=== PATIENT | female | born 1940 | race Caucasian/White ===

== ENCOUNTER 2018-01-17 09:39 | Day surgery (SDC) | payer OTHER, SELFPAY ==
--- NOTE | 2018-01-15 09:16 | PM.PREOP ---
Pre-operative Note Interval Note Pre-op Check: Yes History & Physical Reviewed by Physician Changes: No
--- NOTE | 2018-01-15 09:17 | PM.OP.1 ---
Operative Date/Time/Diagnoses Date of procedure: 01/17/18 Time of procedure: 11:00 Procedure & Clinicians Procedure: Date of service: January 17, 2018 Preoperative diagnoses: 1. Nuclear and cortical Cataract 2. Refractive surgery right eye. Postoperative diagnoses: 1. Cataract removed with phaco emulsification and placement of a posterior chamber intraocular lens. Procedure: Phacoemulsification with posterior chamber intraocular lens implant Surgeon: Kate Kebede MD Complications: None Specimen: None Implant:ZCBOO+20.0 Blood loss: None Anesthesia: Retrobulbar with monitored standby Anesthesiologist: Ginger Torres M.D. Description of procedure: Patient is a 77 year old female with decreased vision due to cataract which is affecting activities of daily living. She wants surgery to improve vision. She was taken to the operating room and given IV sedation. A retrobulbar block consisting of 6 cc of 2% xylocaine without epinephrine mixed half and half with 0.5% Marcaine with 1 cc of hyaluronidase added is placed between the medial and lateral 1/3 of the inferior orbital rim. Lid akinesia is obtain with 1% xylocaine with epinephrine infiltrated along the lid margin. The eye is manually massaged for 30 sec, prepped using Betadine solution, and draped in the usual sterile fashion. Temporal approach was made, a 1 mm side-port incision was made at the 12 oclock meridian. Phenylephrine 1.5% mixed with 1% xylocaine 0.2 cc was placed into the anterior chamber. Viscoat followed by Vicenta was then placed. A 2.6 mm clear incision with a 2.6 mm blade was placed at the 3 oclock meridian. A 360 degree capsulorrhexis style capsulotomy was then performed with a cystitome needle on a Healon. Hydrodelineation and hydrodissection were performed. The phacoemulsification unit is introduced, and sculpting notice used to groove the central lens. It is then removed in chopping mode. The iris and capsule are slightly floppy. Epi nucleus is removed with epinuclear mode and irrigation aspiration was used to remove the peripheral cortex. The posterior capsule is polished. The intraocular lens is selected, inspected, power confirmed, and placed in the posterior chamber. The pupil [] constricted. The wound was stromally hydrated and tested for leaks, there was none and was left sutureless. Vigamox 0.1 cc was placed into the anterior chamber. Kenalog 0.2 cc was placed in the superior subconjunctival space. A drop of antibiotic and was placed and the eye was patched and shielded. The patient was stable and returned to the recovery room in excellent condition. Dictated by: Kate Kebede MD Copy to: [facility]
[2018-01-17 10:10] VITALS: BP 147/87; PULSE 58; RESP 16; TEMP 36.6; O2SAT 97; BMI 33.6
[2018-01-17] MEDS: PROPARACAINE 0.5% OPHTH SOL 2 DROPS EYE-OP (10:11)
[2018-01-17] MEDS: CATARACT EYE COMPOUND (10 DROPS/SYRINGE) 3 DROPS EYE-OP ×3 (10:22→10:32)
[2018-01-17] MEDS: BALANCED SALT IRRIG SOLN NO.2 15 ML IRRIG.SOLN IRR (11:26)
[2018-01-17] MEDS: CARBACHOL 1.5 ML VIAL INJ (11:27)
[2018-01-17] MEDS: CHONDROIDTIN/SOD HYALURONATE 1.05 ML SYRINGE INTRAOCULA (11:27)
[2018-01-17] MEDS: HYALURONATE SODIUM 10 MG/ML SYRINGE INJ (11:28)
[2018-01-17] MEDS: MOXIFLOXACIN OPHTH DROPS 3 ML BOTTLE 2 DROPS INJ (11:28)
[2018-01-17] MEDS: LIDOCAINE 1% W/EPI INJ 20 ML INJ (11:28)
[2018-01-17] MEDS: OFLOXACIN 0.3% OPHTH 5 ML 2 DROPS EYE-LEFT (11:29)
[2018-01-17] MEDS: NEOMYCIN/POLY/DEX OPHTH OINT 1 APPLIC EYE-LEFT (11:29)
[2018-01-17] MEDS: TRIAMCINOLONE 50 MG/5 ML VIAL INJ (11:30)
[2018-01-17] MEDS: BALANCED SALT IRRIG SOLN NO.2 500 ML, EPINEPHrine 1 MG IRR (11:31)
[2018-01-17] MEDS: LIDOCAINE 2% 4 ML, BUPIVACAINE 0.5% (PF) 4 ML, HYALURONIDASE 150 UNIT INJ (11:32)
[2018-01-17 11:55] VITALS: BP 148/80; PULSE 55; RESP 16; TEMP 36.6; O2SAT 100
== END 2018-01-17 12:05 | disposition home or self-care (01) ==
LOC: OR 09:40
PROVIDERS: PCP Family Medicine; Visit Provider Ophthalmology
DX: H25.12 Age-related nuclear cataract, left eye (principal)
CPT/HCPCS: J0171; J2250; J2704; J3010; J3301; J3470

== ENCOUNTER 2018-01-24 08:06 | Day surgery (SDC) | payer OTHER, SELFPAY ==
--- NOTE | 2018-01-23 07:45 | PM.PREOP ---
Pre-operative Note Interval Note Pre-op Check: Yes History & Physical Reviewed by Physician Changes: No
--- NOTE | 2018-01-24 07:43 | P.OP_ITS ---
Operative Date/Time/Diagnoses Date of procedure: 01/24/18 Time of procedure: 08:45 Procedure & Clinicians Procedure: Date of service: January 24, 2018 Preoperative diagnoses: 1. Right nuclear sclerotic and cortical cataract. 2. Previous radial keratotomy. Postoperative diagnoses: 1. Cataract removed with phacoemulsification and placement of posterior chamber intraocular lens implant. Procedure: Phacoemulsification with posterior chamber intraocular lens implant Surgeon: Kate Kebede MD Complications:None Specimen: None Implant:ZCBOO+23.5 Blood loss: None Anesthesia: Retrobulbar with monitored standby Anesthesiologist: Micah Chase M.D. Description of procedure: Patient is a female 77 year old with decreased vision due to cataract which is affecting activities of daily living. She wants surgery to improve vision. Her case is complex complicated by the fact she has had previous radial keratotomy and this can make the eye and stable for cataract surgery. It can also cause variability in postoperative vision and intra-ocular lens implant choice. She also understands there is a risk of corneal rupture with need for suturing if it becomes present. She was taken to the operating room and given IV sedation. A retrobulbar block consisting of 6 cc of 2% xylocaine without epinephrine mixed half and half with 0.5% Marcaine with 1 cc of hyaluronidase added is placed between the medial and lateral 1/3 of the inferior orbital rim. Lid akinesia is obtain with 1% xylocaine with epinephrine infiltrated along the lid margin. The eye is manually massaged for 30 sec, prepped using Betadine solution, and draped in the usual sterile fashion. Temporal approach was made, a 1 mm side-port incision was made at the 7:30 position. A 4 cut RK is present with clear central axis. She has a poorly dilating pupil. Phenylephrine 1.5% mixed with 1% xylocaine 0.2 cc was placed into the anterior chamber. Viscoat followed by Vicenta was then placed. A 2.6 mm clear incision with a 2.6 mm blade was placed at the 170 degree meridian. Care was taken to not enter under any previous corneal incision. A 360 degree capsulorrhexis style capsulotomy was then performed with a cystitome needle on a Healon. Hydrodelineation and hydrodissection were performed. The phacoemulsification unit is introduced, and sculpting notice used to groove the central lens. It is then removed in chopping mode using a low bottle height and low-flow to reduce corneal rupture risk. Epi nucleus is removed with epinuclear mode and irrigation aspiration was used to remove the peripheral cortex. The posterior capsule is polished. The intraocular lens is selected, inspected, power confirmed, and placed in the posterior chamber. The pupil was constricted. The wound was stromally hydrated and tested for leaks, there was none and it was left sutureless. A fluorescein strip was used to check the wound. No corneal sutures were leaking. A bandage contact lens was placed for extra security after intracameral antibiotics were placed. Vigamox 0.1 cc was placed into the anterior chamber. Kenalog 0.2 cc was placed in the superior subconjunctival space. A drop of antibiotic and was placed and the eye was patched and shielded. The patient was stable and returned to the recovery room in excellent condition. Dictated by: Kate Kebede MD Copy to: [facility] Same procedure as scheduled: Yes
[2018-01-24] MEDS: PROPARACAINE 0.5% OPHTH SOL 2 DROPS EYE-OP (08:20)
[2018-01-24 08:27] VITALS: BP 156/80; PULSE 61; RESP 16; TEMP 36.4; O2SAT 16; BMI 33.6
[2018-01-24] MEDS: CATARACT EYE COMPOUND (10 DROPS/SYRINGE) 3 DROPS EYE-OP (08:39)
[2018-01-24] MEDS: TRIAMCINOLONE 50 MG/5 ML VIAL INJ (09:23)
[2018-01-24] MEDS: MOXIFLOXACIN OPHTH DROPS 3 ML BOTTLE 2 DROPS INJ (09:23)
[2018-01-24] MEDS: PHENYLEPHRINE/LIDOCAINE VIAL (OR) 0.2 ML EYE-OP (09:23)
[2018-01-24] MEDS: CHONDROIDTIN/SOD HYALURONATE 1.05 ML SYRINGE INTRAOCULA (09:24)
[2018-01-24] MEDS: HYALURONATE SODIUM 10 MG/ML SYRINGE INJ (09:24)
[2018-01-24] MEDS: CARBACHOL 1.5 ML VIAL INJ (09:25)
[2018-01-24] MEDS: OFLOXACIN 0.3% OPHTH 5 ML 2 DROPS EYE-RIGHT (09:25)
[2018-01-24] MEDS: NEOMYCIN/POLY/DEX OPHTH OINT 1 APPLIC EYE-RIGHT (09:26)
[2018-01-24] MEDS: LIDOCAINE 2% 4 ML, BUPIVACAINE 0.5% (PF) 4 ML, HYALURONIDASE 150 UNIT INJ (09:27)
[2018-01-24] MEDS: BALANCED SALT IRRIG SOLN NO.2 500 ML, EPINEPHrine 1 MG IRR (09:27)
[2018-01-24] MEDS: BALANCED SALT IRRIG SOLN NO.2 15 ML IRRIG.SOLN IRR (09:29)
[2018-01-24] MEDS: LIDOCAINE 1% W/EPI INJ 20 ML INJ (09:29)
[2018-01-24 09:56] VITALS: BP 135/71; PULSE 59; RESP 16; TEMP 36.9; O2SAT 99
== END 2018-01-24 11:02 | disposition home or self-care (01) ==
PROVIDERS: PCP Family Medicine; Visit Provider Ophthalmology
DX: H25.11 Age-related nuclear cataract, right eye (principal)
CPT/HCPCS: J0171; J2250; J2704; J3010; J3301; J3470

== ENCOUNTER → 2021-01-21 08:43 | Outpatient (CLI) | payer MEDICARE, OTHER, SELFPAY ==
--- NOTE | 2021-01-21 08:46 | DI.MG.S_ITS ---
BILATERAL DIGITAL SCREENING MAMMOGRAM 3D/2D WITH CAD: 01/21/2021 CLINICAL: Routine screening. Comparison is made to exams dated: 10/25/2018 mammogram - [facility], 07/24/2015 mammogram, and 10/03/2013 mammogram - [facility]. There are scattered fibroglandular elements in both breasts. Current study was also evaluated with a Computer Aided Detection (CAD) system. There are benign calcifications in both breasts. There is a mole marker on the left breast. No significant masses, calcifications, or other findings are seen in either breast. There has been no significant interval change. IMPRESSION: BENIGN There is no mammographic evidence of malignancy. A 1 year screening mammogram is recommended. This exam was interpreted at Station ID: [id number]. NOTE: For mammograms, a report in lay terms will be sent to the patient. Approximately 15% of breast malignancies will not be visualized mammographically. In the management of a palpable breast mass, a negative mammogram must not discourage biopsy of a clinically suspicious lesion. Electronically Signed By: Jorge Alberto Crain M.D., jr/demetria:01/21/2021 09:33:07 letter sent: Normal Exam ACR BI-RADS Category 2: Benign Finding(s) 3342F
== END ==
PROVIDERS: PCP Family Medicine; Referring Provider Family Medicine; Visit Provider Family Medicine
DX: Z12.31 Encounter for screening mammogram for malignant neoplasm of breast (principal); Z78.0 Asymptomatic menopausal state; M85.852 Other specified disorders of bone density and structure, left thigh; Z82.62 Family history of osteoporosis
CPT/HCPCS: 77063; 77067; 77080

== ENCOUNTER → 2022-02-28 11:51 | Outpatient (CLI) | payer MEDICARE, OTHER, SELFPAY ==
--- NOTE | 2022-02-28 | DI.MG.S_ITS ---
BILATERAL DIGITAL SCREENING MAMMOGRAM 3D/2D WITH CAD: 02/28/2022 CLINICAL: Routine screening. Comparison is made to exams dated: 01/21/2021 mammogram - [facility], 10/25/2018 mammogram - [facility], 07/24/2015 mammogram, and 10/16/2009 mammogram - [facility]. There are scattered areas of fibroglandular density in both breasts (category b / 25%-50% glandular tissue). Current study was also evaluated with a Computer Aided Detection (CAD) system. There are benign calcifications in both breasts. No significant masses, calcifications, or other findings are seen in either breast. There has been no significant interval change. IMPRESSION: BENIGN There is no mammographic evidence of malignancy. A 1 year screening mammogram is recommended. Based on the Tyrer Cuzick model (a risk assessment model) the patient's lifetime risk is 2.6% and her 10 year risk is 0.0%. According to the ACR, ACS, and NCCN guidelines, an annual breast MRI exam along with mammogram is recommended if the patient's lifetime risk is 20% or greater. This exam was interpreted at Station ID: [id number]. NOTE: For mammograms, a report in lay terms will be sent to the patient. Approximately 15% of breast malignancies will not be visualized mammographically. In the management of a palpable breast mass, a negative mammogram must not discourage biopsy of a clinically suspicious lesion. Electronically Signed By: Alex ling/demetria:02/28/2022 13:09:41 letter sent: Normal Exam ACR BI-RADS Category 2: Benign Finding(s) 3342F
== END ==
PROVIDERS: PCP Family Medicine; Referring Provider Family Medicine; Visit Provider Family Medicine
DX: Z12.31 Encounter for screening mammogram for malignant neoplasm of breast (principal)
CPT/HCPCS: 77063; 77067

== ENCOUNTER → 2022-09-17 15:56 | Outpatient (CLI) | payer MEDICARE, OTHER, SELFPAY ==
[2022-09-17 16:39] LABS: Add Manual Diff / Slide Review NO; Basophils Absolute Auto 0 /uL (0-100); Basophils Percent Auto 0.4 % (0-2); Eosinophils Absolute Auto 200 /uL (0-450); Eosinophils Percent Auto 2.7 % (2-4); Hematocrit 39.2 % (36-46); Hemoglobin 13.5 g/dL (12.0-16.0); Lymphocytes Absolute Auto 2000 /uL (1100-4500); Lymphocytes Percent Auto 34.5 % (25-40); Mean Corpuscular HGB Conc 34.4 % (30-36); Mean Corpuscular Hemoglobin 31.3 PG (26-34); Monocytes Absolute Auto 500 /uL (0-900); Monocytes Percent Auto 8.6 % (3-14); Neutrophils Absolute Auto 3200 /uL (1500-7000); Neutrophils Percent Auto 53.8 % (50-75); Platelet Count 206 X10^3/uL (150-400); Red Blood Cell Count 4.31 X10^6/uL (4.0-5.2); Red Cell Distribution Width 13.8 % (11.6-14.8); White Blood Cell Count 5.9 X10^3/uL (4.5-11.0)
[2022-09-17 16:57] LABS: HEMOLYSIS < 15 (0-50); Iron 94 ug/dL (37-170)
[2022-09-17 16:59] LABS: Alanine Aminotransferase 29 IU/L (<35); Albumin 4.1 g/dL (3.5-5.0); Albumin Globulin Ratio 1.5 (1.0-2.8); Alkaline Phosphatase 86 U/L (38-126); Aspartate Aminotransferase 30 IU/L (14-36); Bilirubin Total 0.6 mg/dL (0.2-1.3); Blood Urea Nitrogen 16 mg/dL (7-17); Calcium 8.8 mg/dL (8.4-10.2); Carbon Dioxide 22 mmol/L (22-32); Chloride 106 mmol/L (98-107); Cholesterol 170 mg/dL (140-199); Estimated Glomerular Filt Rate > 60 mL/min (>60); Globulin 2.7 g/dL (1.7-4.1); Glucose 91 mg/dL (80-110); HDL Cholesterol 98 mg/dL (40-60); HEMOLYSIS 18 (0-50); LDL Cholesterol Calculated 46 mg/dL (<100); Potassium 3.8 mmol/L (3.4-5.1); Sodium 136 mmol/L (137-145); Total Protein 6.8 g/dL (6.3-8.2); Triglycerides 131 mg/dL (35-150)
[2022-09-17 17:07] LABS: Transferrin 234 mg/dL (206-381)
[2022-09-17 17:08] LABS: Percent Iron Saturation 30 % (15-50); Total Iron Binding Capacity 311 ug/dL (265-497)
[2022-09-17 17:16] LABS: Free T4, Direct Thyroxine 1.25 ng/dL (0.78-2.19)
[2022-09-17 17:30] LABS: TSH w/ Reflex to FT4 2.17 uIU/mL (0.47-4.68)
[2022-09-17 17:47] LABS: Vitamin B12 786 pg/mL (239-931)
== END ==
PROVIDERS: PCP Family Medicine; Referring Provider Family Medicine; Visit Provider Family Medicine
DX: M85.88 Other specified disorders of bone density and structure, other site (principal); I10 Essential (primary) hypertension; R60.0 Localized edema; G60.9 Hereditary and idiopathic neuropathy, unspecified; E78.2 Mixed hyperlipidemia
CPT/HCPCS: 80053; 80061; 82607; 83540; 83550; 84439; 84443; 85025

== ENCOUNTER 2023-04-27 09:32 | Day surgery (SDC) | payer MEDICARE, OTHER, SELFPAY ==
[2023-04-27 10:08] VITALS: BP 160/87; PULSE 74; RESP 17; TEMP 36.5; O2SAT 99
[2023-04-27] MEDS: LACTATED RINGERS 1,000 ML 42 ML IV (10:15)
--- NOTE | 2023-04-27 10:16 | P.HP_ITS ---
History of Present Illness History of Present Illness Date Patient Seen: 04/27/23 Time Patient Seen: 10:16 Chief complaint: Screening Colonoscopy Narrative: Last scope was over 10 years ago. 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 Sister No problems noted. Family/Other No problems noted. Social History household members: spouse Smoking Status: Never smoker alcohol intake: current Meds Home Medications and Allergies Home Medications Medication Instructions Recorded Confirmed Type Zinc PO BID 12/02/21 09/26/22 History calcium citrate 500 mg PO BID 12/02/21 09/26/22 History cholecalciferol (vitamin D3) 10 800 unit PO BID 12/02/21 09/26/22 History mcg (400 unit) capsule diclofenac sodium 1 % gel topical 2 g topical QID arthritis fingers 12/02/21 09/26/22 Rx kit #1 ea docusate sodium 100 mg capsule 300 mg PO DAILY 12/02/21 09/26/22 History (Stool Softener) glucosamine HCl 1,500 mg tablet 1,500 mg PO BID 12/02/21 09/26/22 History vizjkvto-dbfqvsv-eanm-lutein tablet tab PO DAILY 12/02/21 09/26/22 History omega 4-dym-ajl-fish oil 1,200 mg cap PO BID 12/02/21 09/26/22 History (144 mg-216 mg) capsule (Fish Oil) triamcinolone acetonide 0.1 % 1 applic topical DAILY PRN eczema 12/02/21 09/26/22 Rx topical ointment #80 grams topiramate 50 mg tablet 50 mg PO BID #180 tabs 02/08/23 Rx phentermine 15 mg capsule 15 mg PO DAILY #90 caps 02/28/23 04/27/23 Rx atorvastatin 80 mg tablet (Lipitor) 80 mg PO HS #90 tabs 03/21/23 Rx sodium,potassium,mag sulfates 17.5 See Rx Instructions PO .COMPLEX 04/17/23 Rx gram-3.13 gram-1.6 gram oral soln #354 mL (Suprep Bowel Prep Kit) Allergies Allergy/AdvReac Type Severity Reaction Status Date / Time benzalkonium chloride Allergy Unknown RASH Verified 04/27/23 10:06 [From MERTHIOLATE (BENZALKONIUM)] nickel [NICKEL] Allergy Unknown ALLERGY Verified 04/27/23 10:06 SCRATCH TEST REACTION 30/40 YR AGO, HAS NOT HAD PROB simvastatin AdvReac Intermediate MYALGIAS Verified 04/27/23 10:06 Review of Systems Review of Systems ROS: Yes All systems reviewed with the patient and are negative except as otherwise documented Exam Vital Signs (past 8 hours): - 04/27/23 10:08 Temperature 97.7 F Pulse Rate 74 Respiratory Rate 17 Blood Pressure 160/87 H Pulse Oximetry 99 Oxygen Delivery Method Room Air Oxygen Delivery Method Room Air Const General: cooperative and comfortable Nutritional Appearance: average body habitus Orientation: alert, awake and oriented x3 HENMT Head: normocephalic and atraumatic Eyes General: appearance normal, both eyes and all related structures Neck Neck: trachea midline Resp Effort & Inspection: normal respiratory effort and able to speak in complete sentences Cardio Rate: regular rate Rhythm: regular rhythm GI Inspection: normal to inspection Palpation: soft Skin General: atrophy Neuro General: patient alert, patient awake and patient oriented x3 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
--- NOTE | 2023-04-27 11:04 | PM.OP.COLON ---
Operative Date/Time/Diagnoses Date of procedure: 04/27/23 Time of procedure: 11:04 Pre-op diagnosis: Colon cancer screening Post-op diagnosis: same Procedure & Clinicians Study performed: Colonoscopy with anesthesia Same procedure as scheduled: Yes Indications: Colon cancer screening Surgeon: Danica Nelson Procedure Notes Procedure in detail: Preop diagnosis: Colon cancer screening Postop diagnosis: Same Operative procedure: Colonoscopy with anesthesia Surgeon: Jackie Nelson MD Findings: Poor bowel prep. Possible prolapse rectum. Small diverticuli throughout the sigmoid colon Procedure: Patient placed in lateral position. Rectal exam performed showing a possible partial prolapsed rectum easily reduced. Normal tone no masses. Scope was inserted into the rectum and advanced to the ileocecal valve with difficulty in need of abdominal pressure. Insufflation extraction of the scope including retroflex had the above findings. Impression: No large masses or polyps identified but poor bowel prep may have obscured small masses or polyps. Retroflex and physical exam give me the impression she has a partial rectal prolapse versus internal hemorrhoid prolapse that easily reduces spontaneously. Impression: Poor bowel prep however no large masses or polyps identified. Lesser size phenomenon may be obscured by the retained stool that I was unable to clear. Small diverticuli in the sigmoid colon. Possible spontaneous reducing rectal prolapse. Plan: Repeat colonoscopy in 10 years if her health is good. Sooner if clinical conditions change. Findings: diverticulitis, internal hemorrhoids and other findings (spontaneous reducing prolapsed rectum) Specimen(s): none sent Complications: none Post-procedure Recommendations: Colonoscopy in 10 years Plan for aftercare: Increase fiber and water to soften the stool to a toothpaste consistency moving forward so that her rectal prolapse does not become a problem. Follow up: as needed Disposition: PACU
[2023-04-27 11:06] VITALS: BP 118/55; PULSE 65; RESP 22; TEMP 36.9; O2SAT 96
[2023-04-27 11:11] VITALS: BP 109/51; PULSE 63; RESP 18; O2SAT 99
[2023-04-27 11:16] VITALS: BP 111/53; PULSE 55; RESP 22; O2SAT 99
== END 2023-04-27 11:49 | disposition home or self-care (01) ==
PROVIDERS: PCP Family Medicine; Referring Provider Surgery; Visit Provider Surgery
PROC: 0DJD8ZZ Inspection of Lower Intestinal Tract, Via Natural or Artificial Opening Endoscopic (ICD-10-PCS; CPT 45378; principal; 2023-04-27 09:45)
DX: Z12.31 Encounter for screening mammogram for malignant neoplasm of breast (principal); Z12.11 Encounter for screening for malignant neoplasm of colon; K57.30 Diverticulosis of large intestine without perforation or abscess without bleeding; K64.8 Other hemorrhoids; R92.323 Mammographic fibroglandular density, bilateral breasts; M85.88 Other specified disorders of bone density and structure, other site
CPT/HCPCS: G0121; 77080; J2704

== ENCOUNTER → 2023-04-27 09:37 | Outpatient (CLI) | payer MEDICARE, OTHER, SELFPAY ==
--- NOTE | 2023-04-27 12:41 | DI.RAD.S_ITS ---
Bone Density Report Name: CHERI MURILLO Age: 82 Sex: Female Ethnicity: White Date of : 1940 Indication: osteopenia; Referring Provider: GABRIELE FOSS Study: Bone densitometry was performed. Exam Date: April 27, 2023 Accession number: [id number] Bone Density: Region BMD T-score Z-score Classification AP Spine(L1-L4) 0.980 -0.6 2.1 Normal Femoral Neck (Left) 0.691 -1.4 0.9 Osteopenia Total Hip (Left) 0.779 -1.3 0.8 Osteopenia Femoral Neck (Right) 0.624 -2.0 0.3 Osteopenia Total Hip (Right) 0.753 -1.5 0.6 Osteopenia Total Hip Mean 0.766 -1.4 0.7 Osteopenia World Health Organization criteria for BMD impression classify patients as: Normal (T-score at or above -1.0), Osteopenia (T-score between -1.0 and -2.5), or Osteoporosis (T-score at or below -2.5). 10-year Fracture Risk(1): Major Osteoporotic Fracture 16% Hip Fracture 4.7% Reported Risk Factors: [place] (), Neck BMD=0.624, BMI=28.2 (1) FRAX(R) Version 3.08. Fracture probability calculated for an untreated patient. Fracture probability may be lower if the patient has received treatment. Previous Exams: -- Region Exam Age BMD T-score BMD Change BMD Change Date g/cm2 vs Baseline vs Previous -- AP Spine (L1-L4) 04/27/2023 82 0.980 -0.6 0.020 (2.1%)# -0.012 (-1.2%)# 01/21/2021 80 0.992 -0.5 0.032 (3.4%)* 0.036 (3.8%)* 07/24/2015 75 0.956 -0.8 -0.004 (-0.4%) -0.004 (-0.4%) 10/16/2009 69 0.960 -0.8 Total Hip(Left) 04/27/2023 82 0.779 -1.3 -0.048 (-5.8%)# 0.080 (11.5%)# 01/21/2021 80 0.698 -2.0 -0.129 (-15.6%)* -0.046 (-6.2%)* 07/24/2015 75 0.744 -1.6 -0.083 (-10.0%)* -0.083 (-10.0%)* 10/16/2009 69 0.827 -0.9 Total Hip(Right) 04/27/2023 82 0.753 -1.5 -0.055 (-6.8%)# 0.039 (5.4%)# 01/21/2021 80 0.714 -1.9 -0.094 (-11.6%)* -0.062 (-8.0%)* 07/24/2015 75 0.777 -1.4 -0.032 (-3.9%)* -0.032 (-3.9%)* 10/16/2009 69 0.808 -1.1 -- *Denotes significance at 95% confidence level, LSC for AP Spine = 0.022 g/cm2, LSC for Total Hip = 0.027 g/cm2 # Denotes dissimilar scan types or analysis methods Impression: The patient has low bone mass, based on the Right Femoral Neck T-score. The patient has an estimated ten-year risk of hip fracture of 4.7% and an estimated ten-year risk of major fracture of 16%, based on the WHO FRAX algorithm. No significant bone loss was observed. Discussion: BONE DENSITY IS LOW AT ONE OR MORE SKELETAL SITES. THE PATIENT'S BMD AND CLINICAL RISK FACTORS CONTRIBUTE TO THIS PATIENT'S INCREASED RISK OF FRACTURE. This patient's lowest T-score is low at one or more skeletal sites. It meets the World Health Organization's (WHO) criteria for low bone mass (T-score between -1.0 and -2.5). The patient's 10-year risk of hip fracture as calculated by FRAX exceeds the threshold where pharmacological therapy is recommended by the National Osteoporosis Foundation (NOF). However, all treatment decisions require clinical judgment and consideration of individual patient factors, including patient preferences, comorbidities, previous drug use, risk factors not captured in the FRAX model (e.g., frailty, falls, vitamin D deficiency, increased bone turnover, interval significant decline in bone density) and possible under or overestimation of fracture risk by FRAX. The patient should follow a healthful lifestyle (good nutrition with adequate calcium and vitamin D, and appropriate weight-bearing exercise). Follow-Up: Consider a repeat BMD and Vertebral Fracture Assessment (VFA) exam in 2 years or sooner if medically necessary, to reassess this patient's status. Reported by: KYLE STARKS M.D. on 04/27/2023 1:29:00 PM.
--- NOTE | 2023-04-27 12:41 | DI.MG.S_ITS ---
BILATERAL DIGITAL SCREENING MAMMOGRAM 3D/2D WITH CAD: 04/27/2023 CLINICAL: Routine screening. Comparison is made to exams dated: 02/28/2022 mammogram, 01/21/2021 mammogram - [facility], and 10/25/2018 mammogram - [facility]. There are scattered areas of fibroglandular density in both breasts (category b / 25%-50% glandular tissue). Current study was also evaluated with a Computer Aided Detection (CAD) system. There are benign calcifications in both breasts. No significant masses, calcifications, or other findings are seen in either breast. There has been no significant interval change. IMPRESSION: BENIGN There is no mammographic evidence of malignancy. A 1 year screening mammogram is recommended. Based on the Tyrer Cuzick model (a risk assessment model) the patient's lifetime risk is 2.2% and her 10 year risk is 0.0%. According to the ACR, ACS, and NCCN guidelines, an annual breast MRI exam along with mammogram is recommended if the patient's lifetime risk is 20% or greater. This exam was interpreted at Station ID: [id number]. NOTE: For mammograms, a report in lay terms will be sent to the patient. Approximately 15% of breast malignancies will not be visualized mammographically. In the management of a palpable breast mass, a negative mammogram must not discourage biopsy of a clinically suspicious lesion. Electronically Signed By: Marcos bull/demetria:04/27/2023 15:45:05 letter sent: Normal Exam ACR BI-RADS Category 2: Benign Finding(s) 3342F
== END ==
PROVIDERS: PCP Family Medicine; Referring Provider Family Medicine; Visit Provider Family Medicine
DX: M85.88 Other specified disorders of bone density and structure, other site (principal); Z12.31 Encounter for screening mammogram for malignant neoplasm of breast; R92.323 Mammographic fibroglandular density, bilateral breasts
CPT/HCPCS: 77063; 77067; 77080

== ENCOUNTER → 2024-01-17 14:37 | Outpatient (CLI) | payer MEDICARE, OTHER, SELFPAY ==
[2024-01-17 15:44] LABS: Cholesterol 182 mg/dL (140-199); Glucose 93 mg/dL (80-110); Triglycerides 244 mg/dL (35-150)
[2024-01-17 15:54] LABS: HDL Cholesterol 112 mg/dL (40-60); LDL Cholesterol Calculated 21 mg/dL (<100)
[2024-01-17 18:54] LABS: Hep C Virus Ab w/Reflex Quant NEGATIVE s/c (NEGATIVE)
== END ==
PROVIDERS: PCP Family Medicine; Referring Provider Family Medicine; Visit Provider Family Medicine
DX: Z13.1 Encounter for screening for diabetes mellitus (principal); Z13.6 Encounter for screening for cardiovascular disorders; Z11.59 Encounter for screening for other viral diseases; Z13.220 Encounter for screening for lipoid disorders
CPT/HCPCS: 36415; 80061; 82947; 86803

== ENCOUNTER → 2024-10-03 11:18 | Outpatient (CLI) | payer MEDICARE, OTHER, SELFPAY ==
[2024-10-03 12:49] LABS: Cholesterol 164 mg/dL (140-199); HDL Cholesterol 101 mg/dL (40-60); Triglycerides 141 mg/dL (35-150)
== END ==
PROVIDERS: PCP Family Medicine; Referring Provider Family Medicine; Visit Provider Family Medicine
DX: E78.2 Mixed hyperlipidemia (principal)
CPT/HCPCS: 36415; 80061

== ENCOUNTER → 2025-01-01 17:39 | Outpatient (CLI) | payer MEDICARE, OTHER, SELFPAY ==
[2025-01-01 18:04] LABS: Add Manual Diff / Slide Review NO; Hematocrit 38.5 % (36-46); Hemoglobin 13.3 g/dL (12.0-16.0); Lymphocytes Absolute Auto 1900 /uL (1100-4500); Mean Corpuscular HGB Conc 34.6 % (30-36); Mean Corpuscular Hemoglobin 31.8 PG (26-34); Mean Corpuscular Volume 91.9 fL (80-100); Platelet Count 207 X10^3/uL (150-400)
[2025-01-01 18:20] LABS: Blood Urea Nitrogen 21 mg/dL (7-17); Calcium 9.4 mg/dL (8.4-10.2); Carbon Dioxide 26 mmol/L (22-32); Chloride 106 mmol/L (98-107); Estimated Glomerular Filt Rate > 60 mL/min (>60); Glucose 87 mg/dL (70-99); HEMOLYSIS < 15 (0-50); Potassium 3.7 mmol/L (3.4-5.1); Sodium 138 mmol/L (137-145)
[2025-01-01 18:51] LABS: TSH w/ Reflex to FT4 2.79 uIU/mL (0.47-4.68)
[2025-01-01 19:10] LABS: Vitamin B12 655 pg/mL (239-931)
== END ==
PROVIDERS: PCP Family Medicine; Referring Provider Family Medicine; Visit Provider Family Medicine
DX: I10 Essential (primary) hypertension (principal); D47.2 Monoclonal gammopathy; E78.2 Mixed hyperlipidemia
CPT/HCPCS: 80048; 82607; 84443; 85025